=== PATIENT | female | born 1995 | race Hispanic/Latino ===

== ENCOUNTER 2017-12-30 11:53 | Emergency (ER) | payer MEDICAID, OTHER, SELFPAY ==
[2017-12-30] MEDS ORDERED: DEXAMETHASONE SOD PHOSPHATE 10MG/ML 1ML VIAL ONE (13:02)
== END 2017-12-30 13:27 | disposition home or self-care (01) ==
LOC: EDH 11:53
DX: J20.9 Acute bronchitis, unspecified (principal)
CPT/HCPCS: 96372; 99283; J1100

== ENCOUNTER 2019-03-09 10:17 | Emergency (ER) | payer OTHER, SELFPAY | END 2019-03-09 10:44 | disposition home or self-care (01) | LOC: EDH 10:17 | DX: E07.9 Disorder of thyroid, unspecified (principal); M54.2 Cervicalgia | CPT/HCPCS: 99281 ==

== ENCOUNTER 2021-07-06 14:32 | Emergency (ER) | payer OTHER ==
[~2021-07-06] VITALS: Ht 157.5 cm; Wt 99.8 kg
[2021-07-06 14:35] VITALS: BP 145/96
[2021-07-06] MEDS ORDERED: CYCLOBENZAPRINE HCL 10 MG TABLET PO ONE (15:00)
[2021-07-06] MEDS ORDERED: KETOROLAC 60 MG VIAL (30MG/ML) IM ONE (15:00)
[2021-07-06 15:08] LABS: BASOPHILS % (AUTO) 0.7 % (0.0-5.0); EOSINOPHILS % (AUTO) 3.7 % (0.0-8.0); LYMPHOCYTES % (AUTO) 28.1 % (21.0-51.0); MEAN CORPUSCULAR HGB CONC 32.1 g/dL (32.0-36.0); MEAN CORPUSCULAR VOLUME 77.9 fL (79-99); PLATELET COUNT (AUTO) 282 K/uL (130-400); RED BLOOD CELL COUNT(AUTO) 4.88 MIL/uL (4.00-5.50); RED CELL DISTRIBUTION WIDTH 13.8 % (11.0-15.5); WHITE BLOOD COUNT (AUTO) 8.4 K/uL (4.8-10.8)
[2021-07-06 15:12] LABS: AMPHET/METH SCREEN,URINE NEGATIVE (NEGATIVE); BARBITURATE SCREEN, URINE NEGATIVE (NEGATIVE); BENZODIAZEPINES SCREEN,URINE NEGATIVE (NEGATIVE); CANNABINOID SCREEN,URINE NEGATIVE (NEGATIVE); COCAINE SCREEN,URINE NEGATIVE (NEGATIVE); HCG,QUAL RESULT NEGATIVE (NEGATIVE); OPIATE SCREEN,URINE NEGATIVE (NEGATIVE); PHENCYCLIDINE SCREEN,URINE NEGATIVE (NEGATIVE)
[2021-07-06 15:29] LABS: CREATININE 0.9 mg/dL (0.5-1.5); POTASSIUM 3.8 mmol/L (3.5-5.1)
[2021-07-06 15:34] LABS: ALBUMIN 4.1 g/dL (3.5-5.0); BILIRUBIN,TOTAL 0.3 mg/dL (0.2-1.0); TOTAL PROTEIN, SERUM 7.7 g/dL (6.0-8.3)
== END 2021-07-06 16:39 | disposition home or self-care (01) ==
LOC: EDH 14:32
DX: S29.011A Strain of muscle and tendon of front wall of thorax, initial encounter (principal); E66.9 Obesity, unspecified; Z68.41 Body mass index [BMI] 40.0-44.9, adult; Z79.1 Long term (current) use of non-steroidal anti-inflammatories (NSAID); X58.XXXA Exposure to other specified factors, initial encounter; Y93.89 Activity, other specified; Y92.89 Other specified places as the place of occurrence of the external cause; Y99.8 Other external cause status
CPT/HCPCS: 36415; 71045; 80053; 80305; 81025; 84484; 85025; 93005; 96372; 99285; J1885

== ENCOUNTER 2024-02-08 22:06 | Emergency (ER) | payer OTHER ==
[~2024-02-08] VITALS: Ht 157.5 cm; Wt 100.2 kg
[2024-02-08 22:26] LABS: ADD UA MICROSCOPIC YES; APPEARANCE,URINE CLEAR (CLEAR); BILIRUBIN,URINE NEGATIVE (NEGATIVE); COLOR,URINE LIGHT-YELLOW (YELLOW); GLUCOSE, URINE (UA) NEGATIVE (NEGATIVE); KETONES,URINE NEGATIVE (NEGATIVE); LEUKOCYTE ESTERASE ,URINE NEGATIVE Leu/uL (NEGATIVE); NITRATE,URINE NEGATIVE (NEGATIVE); OCCULT BLOOD,URINE SMALL (NEGATIVE); PH,URINE 5.5 (5.0-8.0); PROTEIN,URINE NEGATIVE (NEGATIVE); UROBILINOGEN,URINE 0.2 mg/dL (0.2-1.0)
[2024-02-08 22:36] LABS: BASOPHILS # (AUTO) 0.05 K/uL (0.00-0.20); BASOPHILS % (AUTO) 0.6 % (0.0-5.0); EOSINOPHILS # (AUTO) 0.36 K/uL (0.00-0.70); EOSINOPHILS % (AUTO) 4.5 % (0.0-8.0); IMMATURE GRANULOCYTE ABSOLUTE 0.02 K/uL (0-1); LYMPHOCYTES # (AUTO) 2.8 K/uL (1.0-4.8); LYMPHOCYTES % (AUTO) 34.9 % (21.0-51.0); MEAN CORPUSCULAR HGB CONC 32.2 g/dL (32.0-36.0); MEAN CORPUSCULAR VOLUME 77.7 fL (79-99); MONOCYTES # (AUTO) 0.5 K/uL (0.1-1.0); MONOCYTES % (AUTO) 6.2 % (3.0-13.0); NEUTROPHILS # (AUTO) 4.3 K/uL (1.8-7.7); NEUTROPHILS % (AUTO) 53.6 % (40.0-77.0); PLATELET COUNT (AUTO) 272 K/uL (130-400); RED BLOOD CELL COUNT(AUTO) 4.76 MIL/uL (4.00-5.50); RED CELL DISTRIBUTION WIDTH 14.5 % (11.0-15.5); WHITE BLOOD COUNT (AUTO) 8.1 K/uL (4.8-10.8)
[2024-02-08] MEDS: 0.9%NACL 1000ML 1,000 ML IV ONE (22:37)
[2024-02-08] MEDS: MORPHINE 4 MG SYG IVP ONE (22:42)
[2024-02-08] MEDS: ONDANSETRON 4MG INJ IVP ONE (22:43)
[2024-02-08] MEDS ORDERED: IOHEXOL-350 75 ML VIAL IV ONE (22:56)
[2024-02-08 22:59] LABS: CREATININE 0.8 mg/dL (0.5-1.0); POTASSIUM 3.6 mmol/L (3.5-5.1)
[2024-02-08 23:03] LABS: ALBUMIN 3.6 g/dL (3.5-5.0); BILIRUBIN,TOTAL 0.2 mg/dL (0.2-1.0); TOTAL PROTEIN, SERUM 7.2 g/dL (6.0-8.3)
[2024-02-08] MEDS ORDERED: IBUP-2077 PO (23:59)
[2024-02-09] MEDS: KETOROLAC 30MG VIAL (30MG/ML) IVP ONE (00:02)
[2024-02-09 00:28] VITALS: BP 126/80; PULSE 60; RESP 18; O2SAT 99
== END 2024-02-09 00:31 | disposition home or self-care (01) ==
LOC: EDH 22:06
DX: R10.2 Pelvic and perineal pain (principal); D64.9 Anemia, unspecified; Z90.49 Acquired absence of other specified parts of digestive tract; Z98.890 Other specified postprocedural states
CPT/HCPCS: 99285; 74177; 96374; 76856; 96361; 96375 ×2; 80053; 83690; 85025; 81001; 81025; 36415; J7030; J2405; J2270; Q9967; J1885

== ENCOUNTER 2024-12-15 08:26 | Emergency (ER) | payer BC, OTHER ==
[~2024-12-15] VITALS: Ht 157.5 cm; Wt 99.8 kg
[~2024-12-15 08:26] MED LIST: IBUP-2077 PO
--- NOTE | 2024-12-15 08:49 | ERN ---
General Chief Complaint: Chest Pain Stated Complaint: CHEST PAIN Time Seen by MD: 08:27 Source: patient History of Present Illness Initial Comments Patient is a at 25 weeks by date stating that she was coming in due to chest pressure and back pain. Patient states that she was recently seen by her OBGYN Dr. Dominique and labs with a normal limits. Patient states that the pressure began she was driving and she decided to come in for further evaluation. No other current complaint. 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 HEAD/FACE: No signs of trauma. EENT: No eye pain, no blurred vision, no tearing, no double vision, no ear pain, no ear discharge, no nose pain, no nasal congestion, no throat pain, no throat swelling, no mouth pain. RESPIRATORY: No cough, no orthopnea, no SOB, no stridor, no wheezing. CARDIOVASCULAR: chest pain, no edema, no palpitations, no syncope. GASTROINTESTINAL/ABDOMINAL: No abdominal pain, no constipation, no diarrhea, no nausea, no vomiting. GENITOURINARY: No abnormal discharge, no dysuria, no frequent urination, no hematuria. No complaints of pain in the genitals. MUSCULOSKELETAL: No back pain, no gout, no joint pain, no joint swelling, no muscle pain, no muscle stiffness, no neck pain. INTEGUMENTARY: No change in color, no change in hair/nails, no dryness, no lesion, no lumps, no rash. NEUROLOGICAL/PSYCH: No anxiety, not depressed, no emotional problem, no headache, no numbness, no pre-existing deficit, no history of seizures, no tremors, no weakness. HEMATOLOGIC/LYMPHATIC: Not anemic, no history of blood clots, no apparent bleeding, no bruising, glands not swollen. All Systems Negative, Except as Noted. Physical Exam Physical Exam Dictation VITAL SIGNS: Reviewed. GENERAL APPEARANCE: Alert, oriented x3, no acute distress, obese. HEAD AND FACE: Non-traumatic. EYES: PERRL, pink conjunctivas, eyelid no trauma, anterior chamber clear. EARS: Pinnas intact and no signs of trauma or erythema. Ear canals clear and no discharge. TMs no erythema. NOSE: No discharge, no bleeding. OROPHARYNX: Mouth normal, teeth no caries, tongue pink. Pharynx clear, no erythema. Tonsils no exudates, no abscesses noted. Mucous membrane moist. NECK: Supple, non-tender, no thyromegaly, no masses, no JVD, no bruits. BREAST: Deferred. CHEST: No tenderness, no crepitus, no paradoxical movement, no retractions. LUNGS: Clear, well-ventilated, symmetric, no rales, no wheezing, no rhonchi, no stridor, good breath sounds bilaterally. HEART: Regular rate, regular rhythm, no murmur, no gallops. VASCULAR: No peripheral edema. ABDOMEN: Soft, positive bowel sounds, nondistended, no guarding, nontender, no rebound, no masses no hepatomegaly, no splenomegaly, no Daily's sign, no hernias. RECTAL: Deferred. GENITAL: Deferred. NEUROLOGICAL: Normal speech, gross motor function intact, gross sensory function intact. MUSCULOSKELETAL: Neck nontender, full range of motion, back nontender, full range of motion. EXTREMITIES: Nontender, full range of motion. SKIN: Color pink, dry, no turgor, no rash, no lacerations, no abrasions, no contusions. LYMPHATICS: Deferred. Results Laboratory and Microbiology Lab and Micro Result Laboratory Tests Test 12/15/24 09:05 12/15/24 09:19 Urine Color YELLOW (YELLOW) Urine Appearance CLOUDY (CLEAR) H Urine pH 7.0 (5.0-8.0) Urine Specific [place] 1.019 (1.001-1.031) Urine Protein NEGATIVE mg/dL (NEGATIVE) Urine Glucose (UA) NEGATIVE mg/dL (NEGATIVE) Urine Ketones NEGATIVE mg/dL (NEGATIVE) Urine Occult Blood NEGATIVE (NEGATIVE) Urine Nitrate NEGATIVE (NEGATIVE) Urine Bilirubin NEGATIVE mg/dL (NEGATIVE) Urine Urobilinogen 0.2 mg/dL (0.2-1.0) Urine Leukocyte Esterase 25 Ayesha/uL (NEGATIVE) H Urine RBC 2-5 /HPF (0-1) H Urine WBC 2-5 /HPF (0-1) H Urine Squamous Epithelial Cells RARE /HPF (0-2) Urine Bacteria MOD /HPF (None Seen) White Blood Count 8.8 K/uL (4.8-10.8) Red Blood Count 4.09 MIL/uL (4.00-5.50) Hemoglobin 12.1 g/dL (12.0-16.0) Hematocrit 35.5 % (36-48) L Mean Corpuscular Volume 86.8 fL (79-99) Mean Corpuscular Hemoglobin 29.6 pg (27.0-33.0) Mean Corpuscular Hemoglobin Concent 34.1 g/dL (32.0-36.0) Red Cell Distribution Width 14.0 % (11.0-15.5) Platelet Count 247 K/uL (130-400) Mean Platelet Volume 9.8 fL (7.5-10.5) Immature Granulocyte % (Auto) 1.0 % (0-1) Neutrophils (%) (Auto) 71.8 % (40.0-77.0) Lymphocytes (%) (Auto) 18.2 % (21.0-51.0) L Monocytes (%) (Auto) 6.0 % (3.0-13.0) Eosinophils (%) (Auto) 2.5 % (0.0-8.0) Basophils (%) (Auto) 0.5 % (0.0-5.0) Neutrophils # (Auto) 6.3 K/uL (1.8-7.7) Lymphocytes # (Auto) 1.6 K/uL (1.0-4.8) Monocytes # (Auto) 0.5 K/uL (0.1-1.0) Eosinophils # (Auto) 0.22 K/uL (0.00-0.70) Basophils # (Auto) 0.04 K/uL (0.00-0.20) Absolute Immature Granulocyte (auto 0.09 K/uL (0-1) Nucleated Red Blood Cells 0.0 % (0.0-0.19) Prothrombin Time 10.1 SEC (9.6-11.6) Prothromb Time International Ratio 0.95 (0.85-1.15) Activated Partial Thromboplast Time 26.3 SEC (26.3-35.5) Sodium Level 138 mmol/L (136-145) Potassium Level 3.8 mmol/L (3.5-5.1) Chloride Level 105 mmol/L (101-111) Carbon Dioxide Level 26 mmol/L (21-32) Blood Urea Nitrogen 7 mg/dL (7-18) Creatinine 0.5 mg/dL (0.5-1.0) Glomerular Filtration Rate Calc 131 mL/min (>90) Random Glucose 78 mg/dL (70-105) Total Calcium 9.4 mg/dL (8.5-10.1) Magnesium Level 1.80 mg/dL (1.80-2.40) Total Creatine Kinase 17 U/L (21-232) L Troponin I High Sensitivity < 4 ng/L (4-50) L B-Type Natriuretic Peptide < 5 pg/mL (0-100) Human Chorionic Gonadotropin, Quant 80597 mIU/mL (0-5) H Labs Reviewed?: Yes EKG/XRAY/US/CT/MRI EKG Comment 12/15/2024 time 8:33 a.m. Ventricular rate 60 Sinus rhythm [place] [address] wave elevation or depression Ultrasound Comment Ultrasound 24 weeks in three days, heart rate 124 bpm, cervix close MDM MDM: Differential diagnosis: Chest discomfort, epigastric pain, back pain, abdominal pain, UTI, advanced gestational age, Rationale: Tests considered and ordered secondary to shared decision making include: labs, ECG and radiology Previous outside records reviewed: Old ER visits. Risk of complication and/or morbidity or mortality of patient management: None Medications-Per medication reconciliation Need for hospitalization: Patient does meet criteria for hospitalization. Need for emergency major/minor surgery: No There are no social concerns with this patient. Prescription drug management Prescriptions will include symptomatic care Patient's prior external medical records from other ER visits were reviewed by me as indicated. Prior testing and results from previous visits were reviewed. Prior tests were taken into account with medical decision making and resource utilization, independent historian/historians were used to obtain complete medical history. I independently interpreted the test that were performed, results were reviewed by me and considered findings on radiology if ordered. Medical management and examination interpretation discussions were had by me with other qualified healthcare professionals as indicated for the patient's care. Patient is a 29-year-old female coming in to be evaluated for multiple complaints. Patient had chest discomfort abdominal pain. Due to the advanced gestational age patient will be admitted to the services of OBGYN dr Solorio at [facility] who accepts patient ED Course Orders Procedure Category Date Status Time Cbc With Differential LAB 12/15/24 Complete 08:29 Prothrombin Time With LAB 12/15/24 Complete INR 08:36 B-Type Natriuretic LAB 12/15/24 Complete Peptide 08:36 12 Lead Ekg Tracing- EKG 12/15/24 Resulted Technical 08:36 0.9%Nacl 1000ml (Ns PHA 12/15/24 Complete 1000ml) 09:00 Magnesium LAB 12/15/24 Complete 08:36 Creatine Kinase, Total LAB 12/15/24 Complete 08:36 Troponin I High LAB 12/15/24 Complete Sensitivity 08:36 Urinalysis Profile LAB 12/15/24 Complete 08:36 Partial LAB 12/15/24 Complete Thromboplastin Time 08:36 Basic Metabolic Panel LAB 12/15/24 Complete 08:36 Hcg,Quantitative LAB 12/15/24 Complete 08:36 Mag/Alum/Simeth 30ml PHA 12/15/24 Complete (Maalox Plus 30ml) 09:00 Us Ob >14 Weeks US 12/15/24 Resulted 09:57 Acetaminophen 500mg PHA 12/15/24 Complete Tab (Tylenol 500mg T 12:00 Ondansetron 4mg Inj PHA 12/15/24 Complete (Zofran 4mg Inj) 12:00 Current Medications Medications (Trade) Dose Ordered Sig/Chaparrita Route PRN Reason Start Time Stop Time Status Last Admin Dose Admin Acetaminophen (TYLenol 500MG TAB) 1,000 mg ONCE ONCE PO 12/15/24 12:00 12/15/24 12:01 DC 12/15/24 12:01 Al Hydroxide/Mg Hydroxide (MAALox PLUS 30ML) 30 ml ONCE ONCE PO 12/15/24 09:00 12/15/24 09:05 DC 12/15/24 09:35 Ondansetron HCl (zoFRAN 4MG INJ) 4 mg ONCE ONCE IVP 12/15/24 12:00 12/15/24 12:01 DC 12/15/24 11:59 Sodium Chloride 1,000 ml @ 0 mls/hr ONCE ONCE IV 12/15/24 09:00 12/15/24 09:05 DC 12/15/24 09:35 Vital Signs Date Time Temp Pulse Resp B/P (MAP) Pulse Ox O2 Delivery O2 Flow Rate FiO2 12/15/24 11:52 98.8 63 18 110/67 100 Room Air* 0 21 12/15/24 08:50 98.8 67 18 114/68 99 Room Air* 0 21 12/15/24 08:27 98.2 66 18 129/77 100 Room Air DX & DISP Disposition: Transfer Decision to Admit Time: 14:26 Departure Impression: Primary Impression: Abdominal pain affecting Additional Impressions: greater than 20 weeks gestation, UTI (urinary tract infection) Condition: Stable Referrals: SELF,REFERRAL (PCP) DARREL VEGA MD Dec 15, 2024 08:49
[2024-12-15] MEDS: MAG/ALUM/SIMETH 30 ML UDCUP PO ONE (09:35)
[2024-12-15] MEDS: 0.9%NACL 1000ML 1,000 ML IV ONE (09:35)
[2024-12-15 09:38] LABS: BASOPHILS # (AUTO) 0.04 K/uL (0.00-0.20); BASOPHILS % (AUTO) 0.5 % (0.0-5.0); EOSINOPHILS # (AUTO) 0.22 K/uL (0.00-0.70); EOSINOPHILS % (AUTO) 2.5 % (0.0-8.0); HEMATOCRIT 35.5 % (36-48); IMMATURE GRANULOCYTE ABSOLUTE 0.09 K/uL (0-1); LYMPHOCYTES # (AUTO) 1.6 K/uL (1.0-4.8); LYMPHOCYTES % (AUTO) 18.2 % (21.0-51.0); MEAN CORPUSCULAR HEMOGLOBIN 29.6 pg (27.0-33.0); MEAN CORPUSCULAR HGB CONC 34.1 g/dL (32.0-36.0); MEAN CORPUSCULAR VOLUME 86.8 fL (79-99); MONOCYTES # (AUTO) 0.5 K/uL (0.1-1.0); NEUTROPHILS # (AUTO) 6.3 K/uL (1.8-7.7); NEUTROPHILS % (AUTO) 71.8 % (40.0-77.0); PLATELET COUNT (AUTO) 247 K/uL (130-400); RED BLOOD CELL COUNT(AUTO) 4.09 MIL/uL (4.00-5.50); WHITE BLOOD COUNT (AUTO) 8.8 K/uL (4.8-10.8)
[2024-12-15 09:45] LABS: APPEARANCE,URINE CLOUDY (CLEAR); BILIRUBIN,URINE NEGATIVE (NEGATIVE); COLOR,URINE YELLOW (YELLOW); GLUCOSE, URINE (UA) NEGATIVE (NEGATIVE); KETONES,URINE NEGATIVE (NEGATIVE); LEUKOCYTE ESTERASE ,URINE 25 Leu/uL (NEGATIVE); NITRATE,URINE NEGATIVE (NEGATIVE); OCCULT BLOOD,URINE NEGATIVE (NEGATIVE); PROTEIN,URINE NEGATIVE (NEGATIVE); UROBILINOGEN,URINE 0.2 mg/dL (0.2-1.0)
[2024-12-15 09:48] LABS: CREATININE 0.5 mg/dL (0.5-1.0); POTASSIUM 3.8 mmol/L (3.5-5.1)
[2024-12-15 09:48] LABS: ADD UA MICROSCOPIC YES
[2024-12-15 09:53] LABS: INR 0.95 (0.85-1.15); PROTHROMBIN TIME 10.1 SEC (9.6-11.6)
[2024-12-15 09:54] LABS: PARTIAL THROMBOPLASTIN TIME 26.3 SEC (26.3-35.5)
[2024-12-15 09:55] LABS: BACTERIA,URINE MOD /HPF (None Seen); MUCUS,URINE RARE LPF (None Seen); SQUAMOUS EPITHELIAL CELL,UR RARE /HPF (0-2)
[2024-12-15 10:16] LABS: MAGNESIUM 1.8 mg/dL (1.80-2.40)
[2024-12-15] MEDS: ondanSETRON 4MG INJ IVP ONE (11:59)
[2024-12-15] MEDS: acetaMINOPHEN 500 MG TABLET PO ONE (12:01)
--- NOTE | 2024-12-15 12:17 | HMCIMG ---
ULTRASOUND OB LIMITED INDICATION: Abdominal pain. TECHNIQUE: Real-time transabdominal approach ultrasound examination of the pelvis was performed by the blue line operator, and images subsequently made available for review. COMPARISON: None FINDINGS: Single live intrauterine gestation in transverse lie and transverse head right presentation. heart rate = 124 beats per minute. Posterior grade 2 placenta without previa demonstrated. The amniotic fluid volume is normal at 17.0 cm. Stomach, urinary bladder, cord insertion, three-vessel cord, and visible portions of the thoracolumbar spine appear grossly normal. Remainder of the structures were not well-demonstrated. Cervical os is closed N cervical length is measured at 4.3 cm. Estimated sonographic gestational age = 24 weeks 3 days. Estimated weight = 689 grams +/- 103 grams. 55th percentile. IMPRESSION: 1. Single live intrauterine gestation in transverse lie and transverse head right presentation, and with heart rate of 124 bpm. 2. Parameters as reported.
--- NOTE | 2024-12-15 12:30 | NUR ---
SHANNA SUP MADE AWARE OF TRANSFER ORDER, DX: LOW BACK PAIN OB>20WKS, PCP DR. ARNOLD P
--- NOTE | 2024-12-15 12:35 | EKG ---
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
--- NOTE | 2024-12-15 15:02 | NUR ---
REPORT GIVEN TO NURSE RDZ L&D, [facility].
[2024-12-15 15:30] VITALS: BP 110/70; PULSE 75; RESP 20; TEMP 98.7; O2SAT 99
== END 2024-12-15 16:10 | disposition short-term general hospital (02) ==
LOC: EDH 08:26
DX: O23.42 Unspecified infection of urinary tract in pregnancy, second trimester (principal); N39.0 Urinary tract infection, site not specified; O26.892 Other specified pregnancy related conditions, second trimester; R10.2 Pelvic and perineal pain; Z3A.25 25 weeks gestation of pregnancy; Z90.49 Acquired absence of other specified parts of digestive tract; Z79.899 Other long term (current) drug therapy
CPT/HCPCS: 99285; 96374; 76805; 96361; 82550; 83735; 84484; 80048; 83880; 84702; 85025; 85610; 85730; 81001; 36415; 93005; J7030; J2405